=== PATIENT | female | born 1960 | race Caucasian/White ===

== ENCOUNTER 2022-03-31 19:37 | Emergency (ER) | payer BC ==
--- NOTE | 2022-03-31 20:15 | NUR ---
SHIRAZ REFUSED MEDICATION. STATED SHE DID NOT WANT/ OR HAVE TIME TO WAIT AT THIS TIME. PATIENT STATED THAT SHE JUST WANTED TO SIGN AMA AND GO HOME.
[2022-03-31] MEDS ORDERED: ONDA-188 PO (20:20)
[2022-03-31] MEDS ORDERED: ONDANSETRON 4 MG ODT PO ONE (20:20)
--- NOTE | 2022-03-31 20:20 | NUR ---
Leigh avila in [facility] - 03/31/22 at 2030 by JHONATHAN EVARISTO SIGNED AND PLACED IN CHART
--- NOTE | 2022-03-31 20:24 | NUR ---
AMA SIGNED AND PLACED IN CHART
== END 2022-03-31 20:24 | disposition left against medical advice (07) ==
LOC: MED 19:37
DX: R11.2 Nausea with vomiting, unspecified (principal); R51.9 Headache, unspecified; R10.9 Unspecified abdominal pain
CPT/HCPCS: 99281

== ENCOUNTER 2022-05-23 12:16 | Emergency (ER) | payer BC ==
[~2022-05-23] VITALS: Ht 154.9 cm; Wt 56.7 kg
[~2022-05-23 12:16] MED LIST: ONDA-188 PO
[2022-05-23 12:30] VITALS: BP 124/68
--- NOTE | 2022-05-23 12:35 | NUR ---
Patient ambulated to bed 5.
--- NOTE | 2022-05-23 12:44 | NUR ---
RUKHSANA FRENCH AT BEDSIDE.
--- NOTE | 2022-05-23 12:44 | NUR ---
62 Y/O F BIB SELF C/O BILATERAL POSTERIOR UPPER THIGH PAIN X6 DAYS. PT DENIES ANY INJURY OR TRAUMA. PMH: DENIES
[2022-05-23] MEDS ORDERED: KETOROLAC 30 MG/ML VIAL IM ONE (13:05)
--- NOTE | 2022-05-23 13:30 | NUR ---
PATIENT MEDICATED FOR PAIN AND ALL COMFORT MEASURES OFFERED. PT RESTING COMFORTABLY AT THIS TIME.
[2022-05-23] MEDS ORDERED: DICL50EC11 PO (14:42)
[2022-05-23 14:48] VITALS: BP 110/80
--- NOTE | 2022-05-23 14:48 | NUR ---
Patient discharged with v/s stable. Written and verbal after care instructions given and explained. Patient alert, oriented and verbalized understanding of instructions. Ambulatory with steady gait. All questions addressed prior to discharge. ID band removed. Patient advised to follow up with PMD. Rx of Diclofenac given. Patient educated on indication of medication including possible reaction and side effects. Opportunity to ask questions provided and answered.
--- NOTE | 2022-05-23 14:49 | NUR ---
Chart checked and completed. The patient's care was reviewed and supervised by Shira Zaptaa RN.
== END 2022-05-23 14:48 | disposition home or self-care (01) ==
LOC: MED 12:16
DX: M79.652 Pain in left thigh (principal); M79.651 Pain in right thigh
CPT/HCPCS: 81002; 96372; 99283; J1885